=== PATIENT | male | born 1960 | race Caucasian/White ===

== ENCOUNTER 2016-09-22 15:18 | Emergency (ER) | payer OTHER ==
[~2016-09-22] VITALS: Ht 180.3 cm; Wt 72.7 kg
[2016-09-22 15:26] VITALS: BP 108/75; PULSE 87; RESP 16; TEMP 98.3; O2SAT 97
--- NOTE | 2016-09-22 15:38 | PD ---
HPI Chief Complaint: Musculoskeletal Complaint Time Seen by Provider: 15:38 Travel History International Travel<30 days: No Contact w/Intl Traveler<30days: No Traveled to known affect area: No History of Present Illness HPI 56-year-old male presents with pain and swelling to the left dorsal radial wrist area he states he woke up with a Thursday morning and has persisted until now. Patient's been trying hot compresses without improvement. Patient states she had a similar episode like this several years ago that he treated with a splint and ice with improvement. Patient was told that he may have had gout at that time. Patient has no local primary care physician. 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 He has no fever, chills or other symptoms. Pain is a 6 out of 10. He has no known drug allergies. PFSH Past Medical History Medical History: Denies Significant Hx Diminished Hearing: No Influenza Vaccination: No Past Surgical History Surgical History: No Previous Surgery Social History Alcohol Use: Yes Tobacco Use: Yes Allergies-Medications (Allergen,Severity, Reaction): Coded Allergies: No Known Allergies (Unverified , 09/22/16) Reported Meds & Prescriptions Reported Meds & Active Scripts Active Prednisone 20 Mg Tab 20 Mg PO BID Review of Systems Except as stated in HPI: all other systems reviewed are Neg General / Constitutional: No: Fever Eyes: No: Visual changes HENT: No: Headaches Cardiovascular: No: Chest Pain or Discomfort Respiratory: No: Shortness of Breath Gastrointestinal: No: Abdominal Pain Genitourinary: No: Dysuria Musculoskeletal: Positive: Arthralgias, Limited ROM, Pain (see history present illness) Skin: No Rash Neurologic: No: Weakness Psychiatric: No: Depression Endocrine: No: Polydipsia Hematologic/Lymphatic: No: Easy Bruising Physical Exam Narrative GENERAL: Patient appears no acute distress. SKIN: Warm and dry. Normal color. Normal turgor HEAD: Atraumatic. Normocephalic. EYES: Pupils equal and round. No scleral icterus. No injection or drainage. ENT: No nasal bleeding or discharge. Mucous membranes pink and moist. Pharynx is clear. NECK: Trachea midline. Neck is supple nontender. CARDIOVASCULAR: Regular rate and rhythm. RESPIRATORY: No accessory muscle use. Clear to auscultation. Breath sounds equal bilaterally. MUSCULOSKELETAL: Extremities without clubbing, cyanosis, or edema. No obvious deformities. Left wrist shows mild to moderate swelling over the dorsal radial wrist along the extensor tendon without signs of infection. Range of motion is intact but limited secondary to pain. Neurovascular exam is normal distally. Patient has no other significant findings. NEUROLOGICAL: Awake and alert. No obvious cranial nerve deficits. Motor grossly within normal limits. Five out of 5 muscle strength in the arms and legs. Normal speech. PSYCHIATRIC: Appropriate mood and affect; insight and judgment normal. Data Data Last Documented VS Vital Signs Date Time Temp Pulse Resp B/P Pulse Ox O2 Delivery O2 Flow Rate FiO2 09/22/16 15:26 98.3 87 16 108/75 97 Orders Splint Or Brace Apply/Monitor (09/22/16 15:43) Prednisone (Deltasone) (09/22/16 15:45) [facility] Medical Decision Making Medical Screen Exam Complete: Yes Emergency Medical Condition: Yes Differential Diagnosis Tenosynovitis of the wrist. Possible gout. Arthritis. Narrative Course Patient is medically stable at time of exam. Radiographic imaging not felt warranted at this time. Patient is placed in a Velcro wrist splint and given prednisone 60 mg by mouth. Patient will be continued on prednisone 20 mg twice a day 7 days. Patient is to use heat and ice and gentle stretching and follow-up if symptoms do not improve. Work note is given. Diagnosis Primary Impression: Extensor tenosynovitis of left wrist Additional Impression: Gouty arthritis Referrals: [facility] Primary Care Physician Patient Instructions: General Instructions, Gout (ED), Upper Extremity Tenosynovitis (DC) Departure Forms: Work Release Enter return to work date: September 23, 2016 Special Instructions: Patient should have limited use of left wrist times one week. Additional Instructions: Radiographic imaging not felt warranted at this time. Patient is placed in a Velcro wrist splint and given prednisone 60 mg by mouth. Patient will be continued on prednisone 20 mg twice a day 7 days. Patient is to use heat and ice and gentle stretching and follow-up if symptoms do not improve. Work note is given. Med/Other Pt SpecificInfo: Prescription(s) given Scripts Prednisone 20 Mg Tab20 Mg PO BID #14 TAB Prov:Tanner Rubio MD 09/22/16 Disposition: 01 DISCHARGE HOME Condition: Stable Macho Flores September 22, 2016 15:38
[2016-09-22] MEDS ORDERED: predniSONE 20 MG TAB PO ONE (15:45)
[2016-09-22] MEDS ORDERED: PRED20 PO (15:45)
== END 2016-09-22 16:01 | disposition home or self-care (01) ==
LOC: PHEFT 15:18
DX: M65.832 Other synovitis and tenosynovitis, left forearm (principal); M10.9 Gout, unspecified
CPT/HCPCS: 99283; J7512; L3908